=== PATIENT | male | born 1975 | race African-American/Black ===

== ENCOUNTER → 2019-09-21 | Day surgery (SDC) | payer MEDICARE, MEDICAID | LOC: ENDO/OP 07:38 | PROVIDERS: ATTEND Internal Medicine Gastroenterology | DX: R13.10 Dysphagia, unspecified (principal); K21.9 Gastro-esophageal reflux disease without esophagitis; K31.84 Gastroparesis; F31.9 Bipolar disorder, unspecified; F17.200 Nicotine dependence, unspecified, uncomplicated; Z88.5 Allergy status to narcotic agent ==

== ENCOUNTER 2019-10-05 07:07 | Inpatient (IN) | payer MEDICARE, MEDICAID ==
[2019-10-05] MEDS ORDERED: Acetaminophen 500 MG TAB ONE (08:00)
[2019-10-05] MEDS ORDERED: Ketorolac Tromethamine 30 MG/ML VIAL ONE (08:00)
[2019-10-05 08:09] LABS: #Basophils 0.1 thou/uL (0.0-0.2); #Eosinphils 0.2 thou/uL (0.0-0.7); #Lymphocytes 2.3 thou/uL (1.20-3.40); #Monocytes 0.7 thou/uL (0.11-0.59); #Neutrophils 4.1 thou/uL (1.40-6.50); %Basophils 1.5 % (0.0-1.0); %Eosinophils 2.6 % (0.0-10.0); %Lymphocytes 31.3 % (21.0-51.0); %Neutrophils 55.7 % (42.0-75.0); Hemoglobin 13.8 g/dL (14.0-18.0); Mean Corpuscular Hemoglobin 27.5 pg (27.0-31.0); Mean Corpuscular Volume 88.9 fL (78.0-98.0); Mean Platelet Volume 9.5 fL (7.4-10.4); Platelet Count 200 thou/uL (130-400); RBC Distribution Width 13.4 % (11.5-14.5); Red Blood Cell (RBC) Count 5.01 mill/uL (4.70-6.10); White Blood Cell (WBC) Count 7.3 thou/uL (4.8-10.8)
[2019-10-05 08:22] LABS: Anion Gap 12 mmol/L (10-20); BUN (Urea Nitrogen) 10 mg/dL (8.9-20.6); Calc. Creatinine Clearance 124 mL/min (70-130); Calcium 9.2 mg/dL (7.8-10.44); Carbon Dioxide 27 mmol/L (22-29); Chloride 105 mmol/L (98-107); Estimated GFR-MDRD Greater than 90; Glucose 91 mg/dL (70-105); Potassium 4.7 mmol/L (3.5-5.1); Sodium 139 mmol/L (136-145)
[2019-10-05] MEDS ORDERED: Midazolam HCl 2 mg/2 ml Vial ONE ×2 (08:57→09:18)
[2019-10-05] MEDS ORDERED: Lidocaine 1% w/Epinephrine 1:100K 20 ML VIAL ONE (09:14)
[2019-10-05] MEDS ORDERED: Bupivacaine 0.25% HCL 30 ML VIAL ONE (09:14)
[2019-10-05] MEDS ORDERED: HYDROmorphone 0.5 MG/0.5 ML SYRINGE ONE ×2 (09:18→13:46)
[2019-10-05] MEDS ORDERED: Fentanyl 250 MCG/5 ML VIAL ONE (09:18)
[2019-10-05] MEDS ORDERED: Promethazine HCl 25 MG/ML VIAL SLOW IVP PRN (10:48)
[2019-10-05] MEDS ORDERED: Promethazine HCl 25 MG/ML VIAL IM PRN (10:48)
[2019-10-05] MEDS ORDERED: Ondansetron HCl/PF 4 MG/2 ML Vial IVP PRN (10:48)
[2019-10-05] MEDS ORDERED: HYDROmorphone 2 MG/ML VIAL SLOW IVP PRN (10:48)
[2019-10-05] MEDS ORDERED: Dextrose 5% in Water 1,000 ML IV PRN (12:53)
[2019-10-05] MEDS ORDERED: Ondansetron PF 4 MG/2 ML Vial IVP PRN (12:53)
[2019-10-05] MEDS ORDERED: hydrALAZINE 20 MG/ML VIAL SLOW IVP PRN (12:53)
[2019-10-05] MEDS ORDERED: Ondansetron ODT 4 MG TAB PO PRN (12:53)
[2019-10-05] MEDS ORDERED: Dextrose 50% Abboject 50 ML SYRINGE SLOW IVP PRN (12:53)
[2019-10-05] MEDS ORDERED: hydrALAZINE 20 MG/ML VIAL ONE (12:57)
[2019-10-05] MEDS ORDERED: Rocuronium Bromide 10 MG/ML (10ML VIAL) ONE (13:32)
[2019-10-05] MEDS ORDERED: ePHEDrine/0.9% NaCl/PF SYRINGE 50 mg/10 ml ONE (13:32)
[2019-10-05] MEDS ORDERED: Glycopyrrolate 0.2 MG/ML 5 ML SYRINGE ONE (13:32)
[2019-10-05] MEDS ORDERED: PROPOFOL 200 MG/20 ML VIAL ONE (13:32)
[2019-10-05] MEDS ORDERED: Succinylcholine Chloride 20 MG/ML 10 ml SYRINGE FS ONE (13:32)
[2019-10-05] MEDS ORDERED: Dexamethasone 20 MG/5 ML VIAL ONE (13:32)
[2019-10-05] MEDS ORDERED: Lidocaine 1% PF 5 ML VIAL ONE (13:32)
[2019-10-05] MEDS ORDERED: Ondansetron PF 4 MG/2 ML Vial ONE (13:32)
[2019-10-05] MEDS ORDERED: Metoclopramide HCl 10 MG/2 ML VIAL ONE (13:32)
[2019-10-05] MEDS ORDERED: Fentanyl 100 MCG/2 ML VIAL ONE ×2 (13:47→18:18)
[2019-10-05] MEDS ORDERED: D5 1/2 NS w/20 mEq KCL 1,000 ML ONE (18:03)
[2019-10-05] MEDS ORDERED: Enoxaparin Sodium 40 MG/0.4 ML SYRINGE SC SCH (21:00)
[2019-10-05] MEDS: Meperidine HCl/PF 25 MG/ML VIAL SLOW IVP PRN (21:08)
[2019-10-05] MEDS: Famotidine/PF 20 mg/2ml Vial SLOW IVP SCH (21:08)
[2019-10-05] MEDS: D5 1/2 NS w/20 mEq KCL 1,000 ML IV SCH ×2 (21:18→21:20)
[2019-10-05 22:06] VITALS: BMI 29.1
[2019-10-06] MEDS: Meperidine HCl/PF 25 MG/ML VIAL SLOW IVP PRN ×3 (00:05→08:00)
[2019-10-06] MEDS: D5 1/2 NS w/20 mEq KCL 1,000 ML IV SCH ×3 (00:06→10:55)
[2019-10-06 05:30] LABS: #Lymphocytes 1.6 thou/uL (1.20-3.40); #Monocytes 0.8 thou/uL (0.11-0.59); #Neutrophils 7.8 thou/uL (1.40-6.50); %Basophils 0.4 % (0.0-1.0); %Lymphocytes 15.8 % (21.0-51.0); %Monocytes 7.9 % (0.0-10.0); Hemoglobin 12.5 g/dL (14.0-18.0); Mean Corpuscular HGB CONC 30.6 g/dL (32.0-36.0); Mean Corpuscular Hemoglobin 27.3 pg (27.0-31.0); Mean Corpuscular Volume 89.1 fL (78.0-98.0); Mean Platelet Volume 9.5 fL (7.4-10.4); Platelet Count 195 thou/uL (130-400); RBC Distribution Width 13.5 % (11.5-14.5); Red Blood Cell (RBC) Count 4.58 mill/uL (4.70-6.10); White Blood Cell (WBC) Count 10.2 thou/uL (4.8-10.8)
[2019-10-06 05:51] LABS: Anion Gap 11 mmol/L (10-20); BUN (Urea Nitrogen) 10 mg/dL (8.9-20.6); Calc. Creatinine Clearance 140 mL/min (70-130); Calcium 8.6 mg/dL (7.8-10.44); Carbon Dioxide 23 mmol/L (22-29); Chloride 107 mmol/L (98-107); Estimated GFR-MDRD Greater than 90; Glucose 103 mg/dL (70-105); Sodium 137 mmol/L (136-145)
--- NOTE | 2019-10-06 07:10 | PDOC.GSPN ---
Surgery Progress Note: Subj - Subjective Patient reports: tolerating liquids well, no flatus, pain is less Narrative: Pt was stable overnight w/ no acute events. Pt said pain decreased post op, it' s 7/10 on the pain scale, but said it's well controlled w/ 12.5mg IV meperidine Q3. Pt had stable vital signs besides previously documented uncontrolled HTN. Pt tolerated clear liquid diet well, hasn't passed gas and stool yet, but has been going to bathroom independently and walking multiple laps around the floor since yesterday. Surgery Progress Note: Obj - Vital signs Vital signs: Vital Signs - Most Recent Temp Pulse Resp BP Pulse Ox 98.0 F 88 18 160/83 H 97 10/06/19 04:38 10/06/19 04:38 10/06/19 04:38 10/06/19 04:38 10/06/19 04:38 - Physical Exam General: no distress, moderate pain Cardiovascular: regular rate and rhythm Respiratory: clear to auscultation, normal respiratory effort Abdomen: soft, decreased bowel sounds, appropriately tender, other (pt complained of epigastric and shoulder pain, which worsen w/ palpation) Integumentary: no abnormal pigmentation Musculoskeletal: other (no edema) Psychiatric: oriented to time, oriented to person, oriented to place Wound: healing well Surgery Progress Note: Results - Labs Result Diagrams: 10/06/19 04:55 10/06/19 04:55 Lab results: Laboratory Results - last 24 hr Surgery Progress Note: A/P - Problem (1) Status post Bettina fundoplication Current Visit: Yes Code(s): Z98.890 - OTHER SPECIFIED POSTPROCEDURAL STATES Status: Acute Assessment and Plan: Phoenix Woodson is a 44YO AAM who presented to the hospital yesterday for elective Bettina Fundoplication w/ reduction of hiatal hernia. Today is POD1 and pt is doing well. Pt had no complaints and has been tolerating clear liquid diet and walking well. Pt had no dysphagia and no reflux symptoms. Pt's pain is well controlled. Pt had slight decrease in Hgb, from 13.8L pre op to 12.5L post op, which was expected. Pt also had elevated BP, but he said it was previously documented by his PCP and pt isn't taking any BP med. Pt was tachycardic immediately post op, but it has since resolved. Continue current management and potentially dc pt later today if no new complaints arise.
[2019-10-06] MEDS: Famotidine/PF 20 mg/2ml Vial SLOW IVP SCH (07:59)
[2019-10-06] MEDS ORDERED: HYDROcodone/Acetaminophen 7.5/325 mg Tablet PO PRN ×2 (08:19)
[2019-10-06] MEDS ORDERED: FLU VACC QS2019-20(6MOS UP)/PF 60 MCG/0.5 ML SYRINGE IM ONE (09:00)
[2019-10-06 13:16] VITALS: TEMP 97.7
[2019-10-06 14:22] VITALS: BP 165/100
--- NOTE | 2019-10-07 11:34 | OP ---
DATE OF PROCEDURE: 10/05/2019 PREOPERATIVE DIAGNOSIS: Hiatal hernia with gastroesophageal reflux disease. POSTOPERATIVE DIAGNOSIS: Hiatal hernia with gastroesophageal reflux disease. PROCEDURE PERFORMED: Laparoscopic Bettina fundoplication. HUMAN RESOURCES GENERALIST: Johnnie Pickens, medical student. ANESTHESIA: General endotracheal. INDICATIONS FOR PROCEDURE: The patient is a 44-year-old black male. He has a diagnosed hiatal hernia. He has symptoms of intractable reflux with nocturnal regurgitation. After undergoing preoperative evaluation, he was taken to the operating room at this time for Bettina fundoplication. DESCRIPTION OF OPERATION: Informed consent was obtained. The patient was taken to the operating room, where general endotracheal anesthesia was obtained with the patient in supine position. Abdomen was prepped with ChloraPrep and draped in sterile fashion. He was placed in a split leg position. Bed was placed in reverse Trendelenburg position. A 5 mm supraumbilical incision and port were placed. A Veress needle was passed, and pneumoperitoneum was established using carbon dioxide to pressure of 15 mmHg. A 5 mm trocar port was passed. Under direct vision, 4 additional ports were placed including bilateral subcostal 5 mm ports, an 11 mm left epigastric port, and a 5 mm right epigastric port. A triangle snake retractor was passed through the right lateral port and used to elevate the left lobe of the liver using the Joe's arm. The hiatal hernia was easily visualized. Dissection was begun on the lesser curvature. The pars flaccida was incised, and dissection was carried down directly onto the right sherif of the diaphragm. This was carefully dissected, and the dissection was carried anteriorly as the stomach was reduced out of the chest. The dissection was also carried posteriorly behind the esophagus to identify the left sherif. A retroesophageal window was obtained, and the Janette drain was passed through this and used to retract the stomach and esophagus down into the abdomen. I then turned my attention to the greater curvature. I took down the vasculature and omentum off the upper third of the greater curvature. Dissection was carried directly down onto the left sherif. Retrogastric adhesions were taken down as well. Dissection was carried up into the mediastinum, mobilizing about 4 cm of the esophagus up above the hiatus. This allowed easy maneuverability to pull an appropriate length of esophagus down intra-abdominal. A size 50 bougie was passed then per Anesthesia down the mouth under vision through the esophagus into the stomach. This was used to calibrate the hiatal closure and the wrap. The hiatus was closed using 2 posterior and 1 anterior suture of 0 Bralon placed with the Endo Stitch device. [place] pledgets were used on each of the 3 sutures. The hiatus was nicely closed around the esophagus by doing this. A segment of the fundus was then obtained through the retroesophageal window and wrapped around. A segment of the greater curvature was selected for the closure. The fundoplication was then carried out with 3 interrupted sutures of 0 Bralon, each of which was a centimeter apart. The upper and lower incisions incorporated bites of the anterior aspect of the esophagus as well. Each suture was secured with the Ti-KNOT device. The fixation of the wrap was then completed by placing 2 collar sutures and 1 posterior gastropexy suture, also each using 0 Bralon. The wrap was intact with excellent morphology. There had been no blood loss to speak of during the operation. The snake retractor was removed. The fascial defect at the 11 mm port site was closed with 0 Vicryl suture using a GraNee needle. All ports and instruments were removed under direct vision. Pneumoperitoneum was carefully evacuated. 0.25% Marcaine with epinephrine was infiltrated into each port site. Skin edges were approximated with 4-0 Monocryl subcuticular suture. Dermabond was placed externally. There were no complications. The patient tolerated the procedure well and was taken to recovery room in stable condition. Job ID: [id number]
== END 2019-10-06 14:27 | disposition home or self-care (01) | DRG 328 ==
LOC: SDC 07:07 → EDSTATUS 12:26 → SURG A 20:20
PROVIDERS: ADMIT Specialist; ATTEND Specialist
PROC: 0DV44ZZ Restriction of Esophagogastric Junction, Percutaneous Endoscopic Approach (ICD-10-PCS; principal; 2019-10-05)
PROC: 0BQT4ZZ Repair Diaphragm, Percutaneous Endoscopic Approach (ICD-10-PCS; 2019-10-05)
DX: K21.9 Gastro-esophageal reflux disease without esophagitis (principal); K44.9 Diaphragmatic hernia without obstruction or gangrene; F41.9 Anxiety disorder, unspecified; F20.9 Schizophrenia, unspecified; F31.9 Bipolar disorder, unspecified; F17.200 Nicotine dependence, unspecified, uncomplicated; Z88.5 Allergy status to narcotic agent; Z79.899 Other long term (current) drug therapy
CPT/HCPCS: 36415; 80048; 85025; 90471; 90686; G0008; J0360; J0690; J1100; J1170; J1650; J1885; J2001; J2175; J2250; J2405; J2704; J2765; J3010; S0020; S0028

== ENCOUNTER 2022-11-19 19:00 | Outpatient (CLI) | payer MEDICARE, MEDICAID | END 2022-11-19 19:01 | disposition home or self-care (01) | LOC: SLEEPLAB 19:00 | PROVIDERS: ATTEND Internal Medicine Critical Care Medicine | DX: G47.33 Obstructive sleep apnea (adult) (pediatric) (principal); F32.A Depression, unspecified; R06.83 Snoring; G47.00 Insomnia, unspecified; G47.10 Hypersomnia, unspecified | CPT/HCPCS: 95811 ==